=== PATIENT | female | born 2000 | race Two or more races ===

== ENCOUNTER 2020-09-19 07:32 | Emergency (ER) | payer SELFPAY ==
[2020-09-19 07:43] VITALS: BP 117/62
--- NOTE | 2020-09-19 08:32 | ER Document Report ---
ED ENT - General Chief Complaint: Ear Pain Stated Complaint: FACE SWELLING Time Seen by Provider: 09/19/20 08:24 Notes: CHIEF COMPLAINT: Lesion on face and swelling of right face HPI: 19-year-old female presenting for which she believes is an infected lesion underneath the right eye that has been present for 1 to 2 weeks. Started developing swelling in front of the right ear and in the right lateral neck in the last 2 days. No fever. ROS: See HPI - all other systems were reviewed and are otherwise negative Constitutional: no fever Eyes: no drainage, no blurred vision ENT: no runny nose, no sore throat, positive lymphadenopathy Cardiovascular: no chest pain Resp: no SOB, no cough GI: no vomiting, no diarrhea, no abdominal pain : no dysuria Integumentary: + rash Allergy: no hives Musculoskeletal: no extremity pain or swelling Neurological: no numbness/tingling, no weakness MEDICATIONS: I agree with the patient medications as charted by the RN. ALLERGIES: I agree with the allergies as charted by the RN. PAST MEDICAL HISTORY/PAST SURGICAL HISTORY: Reviewed and agree as charted by RN. SOCIAL HISTORY: Reviewed and agree as charted by RN. FAMILY HISTORY: No significant familial comorbid conditions directly related to patient complaint EXAM: Reviewed vital signs as charted by RN. CONSTITUTIONAL: Alert and oriented and responds appropriately to questions. Well-appearing; well-nourished HEAD: Normocephalic; atraumatic EYES: PERRL; Conjunctivae clear, sclerae non-icteric ENT: normal nose; no rhinorrhea; moist mucous membranes; pharynx without lesions noted, no uvula edema or deviation, no tonsillar hypertrophy, phonation normal NECK: Supple without meningismus; non-tender; there is lymphadenopathy noted in the right lateral submandibular region and lateral neck. There is swelling of the lymph nodes in the right preauricular region CARD: symmetric distal pulses RESP: Normal chest excursion without splinting or tachypnea ABD/GI: non-distended. BACK: The back appears normal EXT: Normal ROM in all joints; no cyanosis, no effusions, no edema SKIN: Normal color for age and race; warm; dry; good turgor; there is a small raised scabbed erythematous lesion measuring approximately 8 mm in diameter in ferior to the right eye over the cheek. No fluctuant area. No significant surrounding erythema NEURO: Moves all extremities equally; Motor and sensory function intact PSYCH: The patient's mood and manner are appropriate. Grooming and personal hygiene are appropriate. MDM: 19-year-old female with a small infected lesion on the right cheek with reactive lymphadenopathy in the preauricular region and right lateral neck. Will place on Keflex, follow-up PCP to recheck and ensure lymphadenopathy resolves - Related Data Allergies/Adverse Reactions: azithromycin [From Zithromax] Allergy (Verified 09/19/20 07:48) Past Medical History - Social History Smoking Status: Never Smoker Chew tobacco use (# tins/day): No Frequency of alcohol use: None Drug Abuse: None Family History: Reviewed & Not Pertinent Patient has homicidal ideation: No Pulmonary Medical History: Reports: Hx Asthma Physical Exam - Vital signs Vitals: Temp Pulse Resp BP Pulse Ox 98.0 F 101 H 17 117/62 100 09/19/20 07:38 09/19/20 07:38 09/19/20 07:38 09/19/20 07:38 09/19/20 07:38 Course - Vital Signs Vital signs: Temp Pulse Resp BP Pulse Ox 98.0 F 101 H 17 117/62 100 09/19/20 07:38 09/19/20 07:38 09/19/20 07:38 09/19/20 07:38 09/19/20 07:38 - Laboratory Results Critical Laboratory Results Reviewed: No Critical Results - Radiology Results Critical Radiology Results Reviewed: No Critical Results Discharge - Discharge Clinical Impression: Lymphadenopathy of head and neck, Skin lesion of face Condition: Stable Disposition: HOME, SELF-CARE Additional Instructions: Take the antibiotics as prescribed. Warm compresses to the right face and neck to help with the lymphadenopathy. Take ibuprofen or Tylenol for pain and inflammation. Follow-up with a primary care provider for reevaluation to ensure that the lymphadenopathy resolves. Call for appointment. Prescriptions: Cephalexin Monohydrate [Keflex 500 mg Capsule] 500 mg PO Q6H 7 Days #28 capsule Referrals: FAITH LUCERO MD [[facility]AFF] - Follow up as needed
== END 2020-09-19 08:42 | disposition home or self-care (01) ==
LOC: ER 07:32
DX: L98.9 Disorder of the skin and subcutaneous tissue, unspecified (principal); B99.9 Unspecified infectious disease; R59.0 Localized enlarged lymph nodes; J45.909 Unspecified asthma, uncomplicated; Z88.1 Allergy status to other antibiotic agents
CPT/HCPCS: 99283